=== PATIENT | female | born 1995 | race Caucasian/White ===

== ENCOUNTER 2021-01-26 15:13 | Emergency (ER) | payer OTHER ==
[~2021-01-26 15:13] MED LIST: ANTIVERT 12.512.5 MG PO; CIPRO500 MG PO; REGLAN 10 MG TA10 MG PO
[2021-01-26 15:51] LABS: HEMOGLOBIN 15.5 gm/dl (12.3-15.3); RED BLOOD COUNT 4.82 M/UL (4.00-5.10); WHITE BLOOD COUNT 11.8 K/UL (4.5-11.0)
[2021-01-26 16:23] LABS: BUN/CREATININE RATIO 10 (0-10)
[2021-01-26 20:28] LABS: BUN/CREATININE RATIO 8 (0-10)
== END 2021-01-26 20:56 | disposition home or self-care (01) ==
LOC: ER1 15:13
PROVIDERS: Emergency Medicine; Nurse Practitioner
DX: R10.9 Unspecified abdominal pain (principal); R10.813 Right lower quadrant abdominal tenderness; Z90.49 Acquired absence of other specified parts of digestive tract
CPT/HCPCS: 80048; 80053; 81001; 83690; 84703; 85025; 96374; 96375; 99284; J2270; J2405; Q9967

== ENCOUNTER 2021-07-17 15:50 | Emergency (ER) | payer OTHER ==
[2021-07-17 17:53] LABS: HEMOGLOBIN 14.9 gm/dl (12.3-15.3); RED BLOOD COUNT 4.72 M/UL (4.00-5.10); WHITE BLOOD COUNT 8.6 K/UL (4.5-11.0)
== END 2021-07-17 23:30 | disposition home or self-care (01) ==
LOC: ER1 15:50
PROVIDERS: Physician Assistant
DX: N83.202 Unspecified ovarian cyst, left side (principal); N83.201 Unspecified ovarian cyst, right side
CPT/HCPCS: 76830; 80053; 81001; 83690; 84703; 85025; 85610; 85730; 99284